=== PATIENT | female | born 1995 | race Caucasian/White ===

== ENCOUNTER 2017-10-14 20:01 | Emergency (ER) | payer BC ==
--- NOTE | 2017-10-14 21:26 | EDM.PDOC ---
ED HPI GENERAL MEDICAL PROBLEM - General Stated Complaint: UNK Time Seen by Provider: 10/14/17 21:15 Source of Information: Reports: Patient History Limitations: Reports: No Limitations - History of Present Illness INITIAL COMMENTS - FREE TEXT/NARRATIVE: History of present illness: [22-year-old female comes in complaining of earache, cough, as well as vaginal drainage and itching. Patient indicated that she felt very likely was a vaginal infection and would like treated for the same.] Review of systems: As per history of present illness and below otherwise all systems reviewed and negative. Past medical history: As per history of present illness and as reviewed below otherwise noncontributory. Surgical history: As per history of present illness and as reviewed below otherwise noncontributory. Social history: No reported history of drug or alcohol abuse. Family history: As per history of present illness and as reviewed below otherwise noncontributory. Physical exam: HEENT: Atraumatic, normocephalic, pupils reactive, negative for conjunctival pallor or scleral icterus, mucous membranes moist with oral pharyngeal erythema , bilateral TMs noted to be red and dull with a significant amount of dark tenacious cerumen in the canal, neck supple, nontender, trachea midline. Lungs: Lungs diminished but this could be secondary to shallow breathing and body habitus, shallow nonproductive cough noted, breath sounds equal bilaterally , chest nontender. Heart: S1S2, regular, negative for clicks, rubs, or JVD. Abdomen: Soft, nondistended, nontender. Negative for masses or hepatosplenomegaly. Negative for costovertebral tenderness. Pelvis: Stable nontender. Genitourinary: Deferred. Rectal: Deferred. Extremities: Atraumatic, negative for cords or calf pain. Neurovascular unremarkable. Neuro: Awake, alert, oriented. Cranial nerves II through XII unremarkable. Cerebellum unremarkable. Motor and sensory unremarkable throughout. Exam nonfocal. Diagnostics: [Influenza A B, rapid strep] Therapeutics: [] Impression: [#1 vaginitis #2 pharyngitis ] Plan: [antiBiotics steroid inhaler via instrument] Definitive disposition and diagnosis as appropriate pending reevaluation and review of above. ED ROS GENERAL - Review of Systems Review Of Systems: See Below (See history of present illness) ED EXAM, GENERAL - Physical Exam Exam: See Below (See history of present illness) Course - Orders/Labs/Meds Orders: Active Orders 24 hr Category Date Time Status CULTURE STREP A CONFIRMATION [RM] Stat Lab 10/14/17 22:00 Results STREP SCRN A RAPID W CULT CONF [RM] Stat Lab 10/14/17 22:00 Results Departure - Departure Time of Disposition: 22:33 Disposition: Home, Self-Care 01 Condition: Good Clinical Impression: Cough, Pharyngitis, Vaginitis - Discharge Information Instructions: Acute Bronchitis, [id number], Upper Respiratory Infection, Adult, [id number] Referrals: PCP,None [Primary Care Provider] - Additional Instructions: The following information is given to patients seen in the emergency department who are being discharged to home. This information is to outline your options for follow-up care. We provide all patients seen in our emergency department with a follow-up referral. The need for follow-up, as well as the timing and circumstances, are variable depending upon the specifics of your emergency department visit. If you don't have a primary care physician on staff, we will provide you with a referral. We always advise you to contact your personal physician following an emergency department visit to inform them of the circumstance of the visit and for follow-up with them and/or the need for any referrals to a consulting specialist. The emergency department will also refer you to a specialist when appropriate. This referral assures that you have the opportunity for follow-up care with a specialist. All of these measure are taken in an effort to provide you with optimal care, which includes your follow-up. Under all circumstances we always encourage you to contact your private physician who remains a resource for coordinating your care. When calling for follow-up care, please make the office aware that this follow-up is from your recent emergency room visit. If for any reason you are refused follow-up, please contact the [facility] Emergency Department at and asked to speak to the emergency department charge nurse. Take medication as directed All up with PCP 1-2 days Return to ED as needed as discussed - My Orders Last 24 Hours: My Active Orders 10/14/17 22:00 CULTURE STREP A CONFIRMATION [RM] Stat STREP SCRN A RAPID W CULT CONF [RM] Stat - Assessment/Plan Last 24 Hours: My Active Orders 10/14/17 22:00 CULTURE STREP A CONFIRMATION [RM] Stat STREP SCRN A RAPID W CULT CONF [RM] Stat
== END 2017-10-14 22:52 | disposition home or self-care (01) ==
LOC: MW.ED 20:01
DX: J02.9 Acute pharyngitis, unspecified (principal); N76.0 Acute vaginitis
CPT/HCPCS: 87081; 87804; 87880; 99283

== ENCOUNTER 2017-10-29 18:48 | Emergency (ER) | payer BC ==
--- NOTE | 2017-10-29 19:19 | EDM.PDOC ---
ED HPI GENERAL MEDICAL PROBLEM - General Chief Complaint: Lower Extremity Injury/Pain Stated Complaint: PT HURT RT ANKLE Time Seen by Provider: 10/29/17 19:10 Source of Information: Reports: Patient History Limitations: Reports: No Limitations - History of Present Illness INITIAL COMMENTS - FREE TEXT/NARRATIVE: HISTORY AND PHYSICAL: History of present illness: [She comes to the emergency room complaining of right ankle pain after slipping and falling down her stairs last evening between 4 and 5 PM. Her pain has not improved and her foot has become more swollen and bruised. No numbness or tingling. Pain with weight bearing and walking. Has not been wearing a brace or taking any medications for her symptoms. Previous history of surgery to her right ankle during childhood.] Review of systems: As per history of present illness and below otherwise all systems reviewed and negative. Past medical history: As per history of present illness and as reviewed below otherwise noncontributory. Surgical history: As per history of present illness and as reviewed below otherwise noncontributory. Social history: No reported history of drug or alcohol abuse. Family history: As per history of present illness and as reviewed below otherwise noncontributory. Physical exam: HEENT: Atraumatic, normocephalic. Extremities: No deformity is appreciated but her right lateral ankle is swollen , with bruising to her distal tibia. Is tender with palpation. Cap refill less than 2 seconds. Neurovascular unremarkable. Neuro: Awake, alert, oriented. Motor and sensory unremarkable throughout. Exam nonfocal. Diagnostics: [Right ankle x-ray] Impression: [Right ankle pain] Plan: [Discussed with patient that her x-rays are negative for fracture and abnormality and that her symptoms are likely due to sprain. Recommend rest, ice , compression and elevation. [id number] analgesics and anti- inflammatories as needed. Return to ER as needed as discussed. She verbalized understanding of today's discussion.] Definitive disposition and diagnosis as appropriate pending reevaluation and review of above. right ankle Pain Score (Numeric/FACES): 9 - Related Data Allergies Allergy/AdvReac Type Severity Reaction Status Date / Time No Known Allergies Allergy Verified 10/29/17 19:03 Home Meds: Home Meds . [No Known Home Meds] 10/14/17 [History] Past Medical History - Past Health History Medical/Surgical History: Denies Medical/Surgical History HEENT History: Reports: None Cardiovascular History: Reports: None Respiratory History: Reports: None Gastrointestinal History: Reports: None Genitourinary History: Reports: None GOLD LAYER History: Reports: None Musculoskeletal History: Reports: None Neurological History: Reports: None Psychiatric History: Reports: None Endocrine/Metabolic History: Reports: None Hematologic History: Reports: None Immunologic History: Reports: None Oncologic (Cancer) History: Reports: None Dermatologic History: Reports: None - Past Surgical History Head Surgeries/Procedures: Reports: None HEENT Surgical History: Reports: Tonsillectomy Cardiovascular Surgical History: Reports: None Respiratory Surgical History: Reports: None GI Surgical History: Reports: None Female Surgical History: Reports: Section Endocrine Surgical History: Reports: None Musculoskeletal Surgical History: Reports: None Oncologic Surgical History: Reports: None Dermatological Surgical History: Reports: None Social & Family History - Family History Family Medical History: Noncontributory - Tobacco Use Smoking Status *Q: Never Smoker - Caffeine Use Caffeine Use: Reports: Soda - Recreational Drug Use Recreational Drug Use: No Review of Systems - Review of Systems Review Of Systems: ROS reveals no pertinent complaints other than HPI. ED EXAM, GENERAL - Physical Exam Exam: See Below Course - Vital Signs Last Recorded V/S: Last Vital Signs Temp 97.5 F 10/29/17 19:04 Pulse 132 H 10/29/17 19:04 Resp 18 10/29/17 19:04 BP 145/73 H 10/29/17 19:04 Pulse Ox 98 10/29/17 19:04 - Orders/Labs/Meds Orders: Active Orders 24 hr Category Date Time Status Ankle Min 3V Rt [CR] Stat Exams 10/29/17 19:12 Taken Departure - Departure Time of Disposition: 19:55 Disposition: Home, Self-Care 01 Condition: Good Clinical Impression: Ankle pain, right - Discharge Information Instructions: Ankle Sprain, [id number] Referrals: PCP,None [Primary Care Provider] - Forms: ED Department Discharge Additional Instructions: The following information is given to patients seen in the emergency department who are being discharged to home. This information is to outline your options for follow-up care. We provide all patients seen in our emergency department with a follow-up referral. The need for follow-up, as well as the timing and circumstances, are variable depending upon the specifics of your emergency department visit. If you don't have a primary care physician on staff, we will provide you with a referral. We always advise you to contact your personal physician following an emergency department visit to inform them of the circumstance of the visit and for follow-up with them and/or the need for any referrals to a consulting specialist. The emergency department will also refer you to a specialist when appropriate. This referral assures that you have the opportunity for follow-up care with a specialist. All of these measure are taken in an effort to provide you with optimal care, which includes your follow-up. Under all circumstances we always encourage you to contact your private physician who remains a resource for coordinating your care. When calling for follow-up care, please make the office aware that this follow-up is from your recent emergency room visit. If for any reason you are refused follow-up, please contact the emergency department at and asked to speak to the emergency department charge nurse. Primary Care [address] [place] [id number] All up with your primary care provider or at the clinic listed above in 48-72 hours. Tylenol alternating with ibuprofen as needed for discomfort. Rest, ice, ankle brace, elevate. Return to ER as needed as discussed. - My Orders Last 24 Hours: My Active Orders 10/29/17 19:12 Ankle Min 3V Rt [CR] Stat - Assessment/Plan Last 24 Hours: My Active Orders 10/29/17 19:12 Ankle Min 3V Rt [CR] Stat
--- NOTE | 2017-10-30 19:43 | CR ---
EXAM DATE: 10/29/17 PATIENT'S AGE: 22 Patient: ELIESER WHALEN Facility: [place], [place] Site . Site : 1995 Study: XRay Extremity Right [id number]/[id number] 7:35:05 PM Ordering Physician: Doctor Dawn Final Report: HISTORY: Right ankle pain and swelling. TECHNIQUE: Three views of the right ankle. COMPARISON: No prior. FINDINGS: There is no acute fracture. The ankle mortise appears symmetric and maintained. Joint spaces maintained. No radiopaque foreign body or soft tissue gas. IMPRESSION: No acute fracture or malalignment. Dictated by Lobo Alonso MD @ 10/29/2017 7:54:10 PM Dictated by: Lobo Alonso MD @ 10/29/2017 19:54:16 (Electronic Signature) Report Signed by Proxy. [facility]
== END 2017-10-29 20:16 | disposition home or self-care (01) ==
LOC: MW.ED 18:48
DX: S90.01XA Contusion of right ankle, initial encounter (principal); W10.8XXA Fall (on) (from) other stairs and steps, initial encounter
CPT/HCPCS: 73610-26-RT; 73610-RT; 99283; 99284